=== PATIENT | female | born 1950 | race Caucasian/White ===

== ENCOUNTER → 2016-09-22 | Outpatient (CLI) | payer MEDICARE, BC ==
[~2016-09-22] MED LIST: ALPRAZOLAM0.25 MG PO; CITALOPRAM10 MG PO; DIOVAN HCT 12.51 TA2 PO; KEFLEX 500MG.500 MG PO; LORTAB 5/500 501 TAB PO; SYNTHROID0.1 MG PO; VICODIN 5/500 T1 TAB PO
== END ==
LOC: RAD 12:09
DX: R20.2 Paresthesia of skin (principal)